=== PATIENT | female | born 2000 | race Caucasian/White ===

== ENCOUNTER 2024-04-13 21:27 | Emergency (ER) | payer BC ==
[~2024-04-13] VITALS: Ht 182.9 cm; Wt 90.7 kg
[2024-04-13] MEDS ORDERED: Benzonatate 100 MG Cap PO ONE (22:45)
[2024-04-13 23:26] LABS: Influenza A, PCR NEGATIVE (NEGATIVE); Influenza B, PCR NEGATIVE (NEGATIVE); Resp Syncytial Virus, PCR NEGATIVE (NEGATIVE); SARS-Cov-2 (COVID-19) PCR, MMC NEGATIVE (NEGATIVE)
[2024-04-13] MEDS ORDERED: Q-Tussin100 MG/5 M PO (23:50)
[2024-04-13] MEDS ORDERED: BENZ100A PO (23:50)
== END 2024-04-14 00:05 | disposition home or self-care (01) ==
LOC: ER 21:27
PROVIDERS: Emergency Medicine
DX: J20.9 Acute bronchitis, unspecified (principal); Z79.899 Other long term (current) drug therapy
CPT/HCPCS: 0241U; 71046; 85379; 93005; 93010; 99285-25; A9270